=== PATIENT | male | born 1955 | race Caucasian/White ===

== ENCOUNTER → 2016-09-05 | Outpatient (CLI) | payer MEDICARE, MEDICAID ==
[~2016-09-05] MED LIST: ACETAMINOPHEN325 M2 PO; CIPROFLOXACIN500 MG PO; DIAZEPAM2 MG PO; DICLOFENAC 50MG50 MG PO; GABAPENTIN300 MG PO; IBUPROFEN200 MG PO; LEVAQUIN LEVA-750 MG PO; LEVAQUIN500 MG PO; LIDODERM 5% PA1 EACH TD; LORTAB 5/500 501 TAB PO; NAPROXEN D/R500 MG PO; NOMEDS XX; PHENERGAN 25MG.25 M1; PREDNISONE 20MG20 MG PO; TRAZODONE100 MG PO; TUDORZA PR400 MCG/Ac IH; VANCOCIN HCL1000 M1 IV
[2016-09-05 19:45] LABS: AMPHETAMINES/METAMPHETAMINES NEGATIVE ng/mL (<1000)
[2016-09-16 07:40] LABS: Opiates Negative (Cutoff=100)
== END ==
LOC: LAB 17:05
PROVIDERS: Emergency Medicine
DX: Z79.899 Other long term (current) drug therapy (principal)

== ENCOUNTER → 2017-03-18 | Outpatient (CLI) | payer MEDICARE, MEDICAID ==
[~2017-03-18] MED LIST changes: +XARELTO20 MG PO
--- NOTE | 2017-03-19 10:39 | RADIOLOGY REPORT PS360 ---
CT CERVICAL SPINE W/O CONT INDICATION: Neck pain, history of throat cancer and prior cervical spine fusion with hardware removal NECK PAIN ORDERING PHYSICIAN: Tariq Maria MD PATIENT AGE: 61 years COMPARISON: 06/11/2015 TECHNIQUE: Axial images are obtained without contrast. Sagittal and coronal reformatted images are reviewed as well. FINDINGS: There has been interval removal of the cervical bone plate which was at C5, C6, and C7. The screws have been removed. C2-C3: Unremarkable. C3-C4: Left-sided facet hypertrophic change is present with left-sided foraminal narrowing C4-C5: Severe degenerative disc disease with loss of the disc space as before. There is 3 mm retrolisthesis of C4. Endplate irregularity is noted as before. C5-C6: Prior fusion with loss of the disc space. Interval removal of the hardware. Mild right foraminal narrowing from uncovertebral hypertrophy. C6-C7. Prior fusion with narrowed disc space and good alignment. Minimal posterior bony ridging. C7-T1. Severe degenerative disc disease with 2 mm anterolisthesis of C7. No fracture or dislocation. No lytic changes. Lung apices show centrilobular emphysema with pulmonary fibrosis. The previously noted soft tissue mass in the right retropharyngeal region and prevertebral soft tissues is no longer apparent. There is some slight thickening of the prevertebral soft tissues at C7 of questioned clinical significance. Neck CT with contrast would better evaluate this region. IMPRESSION: 1. Interval removal of bone plate at C5, C6, and C7. No aggressive lytic process evident. 2. Previously noted prevertebral mass no longer apparent. 3. Cervical spondylosis as described above. Please see above for detailed description at each level. IMPRESSION:
== END ==
LOC: RAD 07:49
DX: M54.2 Cervicalgia (principal)

== ENCOUNTER → 2017-04-20 | Outpatient (CLI) | payer MEDICARE, MEDICAID ==
[2017-04-20 15:32] LABS: AMPHETAMINES/METAMPHETAMINES NEGATIVE ng/mL (<1000)
[2017-04-26 12:36] LABS: Opiates Negative (Cutoff=100)
== END ==
LOC: LAB 15:01
PROVIDERS: Emergency Medicine
DX: Z79.899 Other long term (current) drug therapy (principal)